=== PATIENT | female | born 1960 | race Caucasian/White ===

== ENCOUNTER 2016-09-10 01:45 | Emergency (ER) | payer OTHER ==
[~2016-09-10] VITALS: Ht 167.6 cm; Wt 88.6 kg
[2016-09-10] MEDS ORDERED: CIPROFLOXACIN 500 MG TAB PO ONE (03:30)
[2016-09-10] MEDS ORDERED: CIPR-249 PO (03:48)
[2016-09-10 03:55] VITALS: BP 124/71
== END 2016-09-10 04:02 | disposition home or self-care (01) ==
LOC: M ED 01:45
DX: N39.0 Urinary tract infection, site not specified (principal); E11.9 Type 2 diabetes mellitus without complications

== ENCOUNTER → 2023-07-02 | Outpatient (CLI) | payer OTHER ==
[~2023-07-02] MED LIST: CIPR-249 PO
== END ==
LOC: M WUC 09:04
PROVIDERS: ATTEND Physician Assistant
DX: R07.9 Chest pain, unspecified (principal)

== ENCOUNTER 2023-11-15 00:47 | Inpatient (IN) | payer OTHER ==
[~2023-11-15] VITALS: Ht 167.6 cm; Wt 67.5 kg
[2023-11-15 03:12] LABS: BASO # 0.1 10^3/uL (0.0-0.2); BASO % 0.3 % (0.0-1.0); EOS # 0.1 10^3/uL (0.0-0.5); EOS % 0.6 % (0.0-3.0); HEMATOCRIT 42.8 % (36.0-47.0); HEMOGLOBIN 14.2 g/dl (12.0-15.5); LYMPH # 1.9 10^3/uL (1.5-5.0); LYMPH % 11.5 % (24.0-44.0); MEAN CORPUSCULAR HGB CONC 33.2 g/dl (32.0-36.5); MEAN CORPUSCULAR VOLUME 93.4 fl (80.0-96.0); MONO # 0.7 10^3/uL (0.0-0.8); MONO % 4.4 % (2.0-8.0); NEUTROPHILS # 13.3 10^3/uL (1.5-8.5); NEUTROPHILS % 82.3 % (36.0-66.0); PLATELET COUNT, AUTOMATED 234 10^3/uL (150-450); RED BLOOD COUNT 4.58 10^6/uL (4.00-5.40); WHITE BLOOD COUNT 16.2 10^3/uL (4.0-10.0)
[2023-11-15 03:26] LABS: AMORPHOUS SEDIMENT SMALL (NEGATIVE); APPEARANCE, URINE HAZY (CLEAR); BACTERIA, URINE AUTO NEGATIVE (NEGATIVE); BILIRUBIN, URINE AUTO NEGATIVE (NEGATIVE); BLOOD, URINE BLOOD NEGATIVE (NEGATIVE); COLOR, URINE YELLOW (YELLOW); GLUCOSE, URINE (UA) AUTO NEGATIVE (NEGATIVE); KETONE, URINE AUTO TRACE mg/dL (NEGATIVE); LEUKOCYTE ESTERASE, URINE AUTO TRACE (NEGATIVE); MUCUS, URINE SMALL (NEGATIVE); NITRITE, URINE AUTO NEGATIVE (NEGATIVE); PROTEIN, URINE AUTO NEGATIVE (NEGATIVE); RBC, URINE AUTO 3 /HPF (0-3); SPECIFIC GRAVITY URINE AUTO 1.018 (1.002-1.035); SQUAMOUS EPITHELIAL CELL UR AU 1 /HPF (0-6); UROBILINOGEN, URINE AUTO 0.2 mg/dL (0.0-2.0); WBC, URINE AUTO 4 /HPF (0-3)
[2023-11-15 03:40] LABS: LIPASE 131 U/L (12-53)
[2023-11-15 03:42] LABS: ALBUMIN 4.5 G/DL (3.2-5.2); ALKALINE PHOSPHATASE 85 U/L (46-116); ALT/SGPT 26 U/L (7.0-40); AST/SGOT 15 U/L (<34); BILIRUBIN,DIRECT 0.1 MG/DL (<0.4); BILIRUBIN,TOTAL 0.4 MG/DL (0.3-1.2); BLOOD UREA NITROGEN 19 MG/DL (9-23); CALCIUM LEVEL 9.9 MG/DL (8.3-10.6); CARBON DIOXIDE LEVEL 28 MMOL/L (20-31); CHLORIDE LEVEL 106 MMOL/L (98-107); CREATININE FOR GFR 0.54 MG/DL (0.55-1.30); GLOMERULAR FILTRATION RATE > 60.0 (>45); GLUCOSE, FASTING 116 MG/DL (74-106); POTASSIUM SERUM 3.5 MMOL/L (3.5-5.1); SODIUM LEVEL 140 MMOL/L (136-145); TOTAL PROTEIN 7.8 G/DL (5.7-8.2)
[2023-11-15] MEDS: NS 500 ML IV ONE (03:50)
[2023-11-15] MEDS: ONDANSETRON 4MG 2ML VIAL IV ONE (04:00)
[2023-11-15] MEDS: MORPHINE 2 MG/ML 1ML VIAL IV PRN (04:00)
[2023-11-15] MEDS ORDERED: ISOVUE-370 76% 100ML VIAL As Ordered ONE (04:04)
[2023-11-15] MEDS: PIPERACILLIN/TAZOBACTAM SOD 4.5 GM in D5W MINI-BAG PLUS 50 ML IV ONE (05:15)
[2023-11-15] MEDS: NS 1,000 ML IV SCH (07:16)
[2023-11-15] MEDS ORDERED: IBUP80TA PO (08:01)
[2023-11-15] MEDS ORDERED: HOME MED LIST COMPLETE! XX SCH (08:05)
[2023-11-15] MEDS: ONDANSETRON 4MG 2ML VIAL IV PRN (09:34)
[2023-11-15 09:42] VITALS: BP 125/95; TEMP 97.3; O2SAT 96
[2023-11-15] MEDS: PIPERACILLIN/TAZOBACTAM SOD 3.375 GM in D5W MINI-BAG PLUS 50 ML IV SCH (11:15)
[2023-11-15] MEDS: NS 0.45% 1,000 ML IV SCH (11:28)
[2023-11-15 12:00] VITALS: BP 122/88; TEMP 97.5; O2SAT 97
[2023-11-15] MEDS: PROMETHAZINE 25MG/ML 1ML VIAL IV ONE (13:16)
[2023-11-15] MEDS ORDERED: PIPERACILLIN/TAZOBACTAM SOD 4.5 GM in D5W MINI-BAG PLUS 50 ML IV SCH (16:00)
[2023-11-15 19:36] VITALS: BP 132/98; TEMP 97.7; O2SAT 96
[2023-11-15] MEDS: ACETAMINOPHEN TAB 650MG DOSE (2X325MG) PO PRN (20:03)
[2023-11-16 04:00] VITALS: BP 134/80; TEMP 98.1; O2SAT 98
[2023-11-16] MEDS: diphenhydrAMINE 50MG/ML VIAL IV ONE (08:10)
[2023-11-16 08:34] LABS: BASO % 0.2 % (0.0-1.0); EOS % 0.3 % (0.0-3.0); HEMATOCRIT 44.8 % (36.0-47.0); HEMOGLOBIN 15.4 g/dl (12.0-15.5); LYMPH % 12.6 % (24.0-44.0); MEAN CORPUSCULAR HEMOGLOBIN 30.7 pg (27.0-33.0); MEAN CORPUSCULAR HGB CONC 34.4 g/dl (32.0-36.5); MEAN CORPUSCULAR VOLUME 89.2 fl (80.0-96.0); MONO # 1.1 10^3/uL (0.0-0.8); MONO % 6.9 % (2.0-8.0); NEUTROPHILS # 12.4 10^3/uL (1.5-8.5); NEUTROPHILS % 79.6 % (36.0-66.0); PLATELET COUNT, AUTOMATED 269 10^3/uL (150-450); RED BLOOD COUNT 5.02 10^6/uL (4.00-5.40); WHITE BLOOD COUNT 15.6 10^3/uL (4.0-10.0)
[2023-11-16 08:56] LABS: ALBUMIN 4.2 G/DL (3.2-5.2); ALKALINE PHOSPHATASE 79 U/L (46-116); ALT/SGPT 21 U/L (7.0-40); AST/SGOT 11 U/L (<34); BILIRUBIN,TOTAL 0.8 MG/DL (0.3-1.2); BLOOD UREA NITROGEN 7 MG/DL (9-23); CALCIUM LEVEL 9.8 MG/DL (8.3-10.6); CARBON DIOXIDE LEVEL 31 MMOL/L (20-31); CHLORIDE LEVEL 101 MMOL/L (98-107); CREATININE FOR GFR 0.56 MG/DL (0.55-1.30); GLOMERULAR FILTRATION RATE > 60.0 (>45); GLUCOSE, FASTING 111 MG/DL (74-106); POTASSIUM SERUM 3.5 MMOL/L (3.5-5.1); SODIUM LEVEL 139 MMOL/L (136-145); TOTAL PROTEIN 7.7 G/DL (5.7-8.2)
[2023-11-16] MEDS: FIORICET TAB PO ONE (10:48)
[2023-11-16] MEDS: KETOROLAC 30 MG/ML 1ML VIAL IV ONE ×2 (10:49→20:02)
[2023-11-16] MEDS: PROMETHAZINE 25MG/ML 1ML VIAL IV ONE (10:49)
[2023-11-16] MEDS: KCL 10MEQ IN D5/0.45NS 1000ML 1,000 ML IV SCH (10:49)
[2023-11-16 12:00] VITALS: BP 126/74; TEMP 97.9; O2SAT 95
[2023-11-16] MEDS: FLUBLOK(EGGFREE) TRIVAL(24-25) VACCINE PF 0.5ML SYRINGE 18YRS & OLDER IM.IMMUN ONE (12:52)
[2023-11-16] MEDS ORDERED: methylPREDNISolone 125MG 2ML VIAL IV ONE (13:10)
[2023-11-16 19:33] VITALS: BP 155/104; TEMP 97.9; O2SAT 96
[2023-11-16 20:43] VITALS: BP 151/99
[2023-11-17] VITALS (16 sets, daily range): BP systolic 118–182; BP diastolic 62–97; TEMP 97.6–100.2; O2SAT 96–99
[2023-11-17] MEDS: CALCIUM CARBONATE 500 MG CHEW U/D PO PRN (01:30)
[2023-11-17] MEDS: FIORICET TAB PO PRN (06:05)
[2023-11-17 06:26] LABS: BASO % 0.2 % (0.0-1.0); EOS % 0.1 % (0.0-3.0); HEMATOCRIT 45.9 % (36.0-47.0); HEMOGLOBIN 15.3 g/dl (12.0-15.5); LYMPH # 1.9 10^3/uL (1.5-5.0); LYMPH % 10.1 % (24.0-44.0); MEAN CORPUSCULAR HEMOGLOBIN 30.2 pg (27.0-33.0); MEAN CORPUSCULAR HGB CONC 33.3 g/dl (32.0-36.5); MEAN CORPUSCULAR VOLUME 90.7 fl (80.0-96.0); MONO # 1.5 10^3/uL (0.0-0.8); MONO % 8.3 % (2.0-8.0); NEUTROPHILS # 14.9 10^3/uL (1.5-8.5); NEUTROPHILS % 80.6 % (36.0-66.0); PLATELET COUNT, AUTOMATED 266 10^3/uL (150-450); RED BLOOD COUNT 5.06 10^6/uL (4.00-5.40); WHITE BLOOD COUNT 18.5 10^3/uL (4.0-10.0)
[2023-11-17 07:06] LABS: BLOOD UREA NITROGEN 10 MG/DL (9-23); CALCIUM LEVEL 9.6 MG/DL (8.3-10.6); CARBON DIOXIDE LEVEL 30 MMOL/L (20-31); CHLORIDE LEVEL 101 MMOL/L (98-107); CREATININE FOR GFR 0.55 MG/DL (0.55-1.30); GLOMERULAR FILTRATION RATE > 60.0 (>45); GLUCOSE, FASTING 127 MG/DL (74-106); POTASSIUM SERUM 3.3 MMOL/L (3.5-5.1); SODIUM LEVEL 139 MMOL/L (136-145)
[2023-11-17] MEDS ORDERED: LORazepam 2 MG/ML 1ML VIAL As Ordered ONE (08:02)
[2023-11-17] MEDS: LORazepam 2 MG/ML 1ML VIAL IV STA (08:03)
[2023-11-17] MEDS ORDERED: levETIRAcetam INJection 1,000 MG in D5W 100 ML IV SCH (09:00)
[2023-11-17] MEDS ORDERED: levETIRAcetam INJection 1,000 MG in D5W 100 ML IV ONE ×2 (09:00)
[2023-11-17] MEDS: LORazepam 2 MG/ML 1ML VIAL IV PRN (09:00)
[2023-11-17] MEDS: LORazepam 2 MG/ML 1ML VIAL IM STA (09:00)
[2023-11-17] MEDS: levETIRAcetam INJection 1,000 MG in D5W 100 ML IV ONE (09:10)
[2023-11-17] MEDS: NS 1,000 ML IV ONE (12:07)
[2023-11-17] MEDS: ACETAMINOPHEN *IV* 1,000 MG in IV 1 EA IV ONE (12:07)
[2023-11-17] MEDS: PHENYTOIN INJection 1,000 MG in NS 100 ML IV ONE (12:22)
[2023-11-17 13:59] LABS: AMPHETAMINES LEVEL URINE NEGATIVE (NEGATIVE)
[2023-11-17 14:02] LABS: BENZODIAZEPINES URINE NEGATIVE (NEGATIVE); COCAINE METABOLITE URINE NEGATIVE (NEGATIVE); METHADONE URINE NEGATIVE (NEGATIVE)
[2023-11-17 14:06] LABS: OPIATES URINE NEGATIVE (NEGATIVE); PHENCYCLIDINE URINE NEGATIVE (NEGATIVE)
[2023-11-17 14:07] LABS: BARBITURATES URINE POSITIVE (NEGATIVE); CANNABINOIDS URINE POSITIVE (NEGATIVE)
[2023-11-17] MEDS: KCL 40MEQ IN D5/NS 1000ML 1,000 ML IV SCH ×2 (14:33→21:12)
[2023-11-17] MEDS: levETIRAcetam INJection 1,000 MG in D5W 100 ML IV SCH (20:38)
[2023-11-17] MEDS: PHENYTOIN 100MG/2ML VIAL IV SCH (23:21)
[2023-11-18 04:03] VITALS: BP 150/85; TEMP 97.9; O2SAT 97
[2023-11-18 06:15] LABS: BASO # 0.1 10^3/uL (0.0-0.2); BASO % 0.4 % (0.0-1.0); EOS # 0.1 10^3/uL (0.0-0.5); EOS % 0.4 % (0.0-3.0); HEMATOCRIT 44.2 % (36.0-47.0); HEMOGLOBIN 14.4 g/dl (12.0-15.5); LYMPH # 2.4 10^3/uL (1.5-5.0); LYMPH % 17.8 % (24.0-44.0); MEAN CORPUSCULAR HEMOGLOBIN 30.2 pg (27.0-33.0); MEAN CORPUSCULAR HGB CONC 32.6 g/dl (32.0-36.5); MEAN CORPUSCULAR VOLUME 92.7 fl (80.0-96.0); MONO # 1.3 10^3/uL (0.0-0.8); MONO % 9.8 % (2.0-8.0); NEUTROPHILS # 9.4 10^3/uL (1.5-8.5); NEUTROPHILS % 71.2 % (36.0-66.0); PLATELET COUNT, AUTOMATED 227 10^3/uL (150-450); RED BLOOD COUNT 4.77 10^6/uL (4.00-5.40); WHITE BLOOD COUNT 13.2 10^3/uL (4.0-10.0)
[2023-11-18 06:22] LABS: BLOOD UREA NITROGEN < 5 MG/DL (9-23); CALCIUM LEVEL 9.1 MG/DL (8.3-10.6); CARBON DIOXIDE LEVEL 29 MMOL/L (20-31); CHLORIDE LEVEL 108 MMOL/L (98-107); CREATININE FOR GFR 0.54 MG/DL (0.55-1.30); GLOMERULAR FILTRATION RATE > 60.0 (>45); GLUCOSE, FASTING 108 MG/DL (74-106); POTASSIUM SERUM 3.6 MMOL/L (3.5-5.1); SODIUM LEVEL 142 MMOL/L (136-145)
[2023-11-18 09:15] VITALS: BP 141/74; TEMP 98.2; O2SAT 96
[2023-11-18 12:30] VITALS: BP 134/76; TEMP 99.1; O2SAT 95
[2023-11-18 16:00] VITALS: BP 140/88; TEMP 97.7; O2SAT 95
[2023-11-18] MEDS: LORazepam 1 MG TAB PO ONE (18:30)
[2023-11-18] MEDS ORDERED: PROHANCE 279.3MG/ML 15ML VIAL As Ordered ONE (19:12)
[2023-11-18 20:00] VITALS: BP 125/76; TEMP 98; O2SAT 96
[2023-11-18] MEDS: ACETAMINOPHEN *IV* 500 MG in IV 1 EA IV ONE (20:57)
[2023-11-18] MEDS: ONDANSETRON 4MG 2ML VIAL IV ONE (20:57)
[2023-11-19] VITALS: BP 126/77; TEMP 97.3; O2SAT 95
[2023-11-19 04:00] VITALS: BP 110/64; TEMP 97.6; O2SAT 95
[2023-11-19 05:31] LABS: BASO # 0.1 10^3/uL (0.0-0.2); BASO % 0.5 % (0.0-1.0); EOS # 0.2 10^3/uL (0.0-0.5); EOS % 1.5 % (0.0-3.0); HEMATOCRIT 41.2 % (36.0-47.0); HEMOGLOBIN 13.8 g/dl (12.0-15.5); LYMPH # 2.8 10^3/uL (1.5-5.0); LYMPH % 24.9 % (24.0-44.0); MEAN CORPUSCULAR HEMOGLOBIN 30.7 pg (27.0-33.0); MEAN CORPUSCULAR HGB CONC 33.5 g/dl (32.0-36.5); MEAN CORPUSCULAR VOLUME 91.8 fl (80.0-96.0); MONO # 1.1 10^3/uL (0.0-0.8); MONO % 9.7 % (2.0-8.0); NEUTROPHILS % 62.8 % (36.0-66.0); PLATELET COUNT, AUTOMATED 200 10^3/uL (150-450); RED BLOOD COUNT 4.49 10^6/uL (4.00-5.40); WHITE BLOOD COUNT 11.1 10^3/uL (4.0-10.0)
[2023-11-19 05:54] LABS: PHENYTOIN (DILANTIN) 17.3 UG/ML (10.0-20.0)
[2023-11-19 05:59] LABS: BLOOD UREA NITROGEN < 5 MG/DL (9-23); CALCIUM LEVEL 9.5 MG/DL (8.3-10.6); CARBON DIOXIDE LEVEL 29 MMOL/L (20-31); CHLORIDE LEVEL 109 MMOL/L (98-107); CREATININE FOR GFR 0.58 MG/DL (0.55-1.30); GLOMERULAR FILTRATION RATE > 60.0 (>45); GLUCOSE, FASTING 100 MG/DL (74-106); POTASSIUM SERUM 3.7 MMOL/L (3.5-5.1); SODIUM LEVEL 143 MMOL/L (136-145)
[2023-11-19 08:00] VITALS: BP 118/75; TEMP 97.6; O2SAT 96
[2023-11-19] MEDS: PHENYTOIN ER 100 MG CAP PO SCH (11:54)
[2023-11-19 16:51] VITALS: BP 114/66; TEMP 98.7; O2SAT 95
[2023-11-19 19:56] VITALS: BP 125/68; TEMP 99; O2SAT 97
[2023-11-19] MEDS: levETIRAcetam 250MG TABLET (KEPPRA) PO SCH (20:32)
[2023-11-19] MEDS: AUGMENTIN 875 MG TAB PO SCH (20:32)
[2023-11-19 23:27] LABS: BASO # 0.1 10^3/uL (0.0-0.2); BASO % 0.5 % (0.0-1.0); EOS # 0.1 10^3/uL (0.0-0.5); HEMOGLOBIN 13.7 g/dl (12.0-15.5); LYMPH # 2.4 10^3/uL (1.5-5.0); LYMPH % 19.1 % (24.0-44.0); MEAN CORPUSCULAR HEMOGLOBIN 30.7 pg (27.0-33.0); MEAN CORPUSCULAR HGB CONC 33.4 g/dl (32.0-36.5); MEAN CORPUSCULAR VOLUME 91.9 fl (80.0-96.0); MONO # 1.1 10^3/uL (0.0-0.8); MONO % 8.9 % (2.0-8.0); NEUTROPHILS # 8.8 10^3/uL (1.5-8.5); NEUTROPHILS % 69.8 % (36.0-66.0); PLATELET COUNT, AUTOMATED 225 10^3/uL (150-450); RED BLOOD COUNT 4.46 10^6/uL (4.00-5.40); WHITE BLOOD COUNT 12.6 10^3/uL (4.0-10.0)
[2023-11-19] MEDS: KETOROLAC 30 MG/ML 1ML VIAL IV PRN (23:34)
[2023-11-19 23:46] LABS: LIPASE 27 U/L (12-53)
[2023-11-19 23:48] LABS: ALBUMIN 3.4 G/DL (3.2-5.2); ALKALINE PHOSPHATASE 72 U/L (46-116); ALT/SGPT 18 U/L (7.0-40); AMYLASE 46 U/L (30-118); AST/SGOT 18 U/L (<34); BILIRUBIN,DIRECT 0.1 MG/DL (<0.4); BILIRUBIN,TOTAL 0.4 MG/DL (0.3-1.2); BLOOD UREA NITROGEN 6 MG/DL (9-23); CALCIUM LEVEL 9.5 MG/DL (8.3-10.6); CARBON DIOXIDE LEVEL 28 MMOL/L (20-31); CHLORIDE LEVEL 109 MMOL/L (98-107); CREATININE FOR GFR 0.47 MG/DL (0.55-1.30); GLOMERULAR FILTRATION RATE > 60.0 (>45); GLUCOSE, FASTING 106 MG/DL (74-106); MAGNESIUM LEVEL 1.8 MG/DL (1.8-2.4); POTASSIUM SERUM 3.3 MMOL/L (3.5-5.1); SODIUM LEVEL 141 MMOL/L (136-145); TOTAL PROTEIN 6.7 G/DL (5.7-8.2)
[2023-11-20] MEDS: POTASSIUM CHLORIDE 10MEQ SR TABLET PO ONE (01:01)
[2023-11-20 04:00] VITALS: BP 128/81; TEMP 98.7; O2SAT 96
[2023-11-20 07:16] LABS: BASO % 0.4 % (0.0-1.0); EOS # 0.2 10^3/uL (0.0-0.5); EOS % 1.5 % (0.0-3.0); HEMATOCRIT 40.6 % (36.0-47.0); HEMOGLOBIN 13.6 g/dl (12.0-15.5); LYMPH # 2.3 10^3/uL (1.5-5.0); LYMPH % 21.3 % (24.0-44.0); MEAN CORPUSCULAR HEMOGLOBIN 30.5 pg (27.0-33.0); MEAN CORPUSCULAR HGB CONC 33.5 g/dl (32.0-36.5); MONO % 9.4 % (2.0-8.0); NEUTROPHILS # 7.1 10^3/uL (1.5-8.5); NEUTROPHILS % 66.5 % (36.0-66.0); PLATELET COUNT, AUTOMATED 224 10^3/uL (150-450); RED BLOOD COUNT 4.46 10^6/uL (4.00-5.40); WHITE BLOOD COUNT 10.7 10^3/uL (4.0-10.0)
[2023-11-20 07:49] LABS: BLOOD UREA NITROGEN 10 MG/DL (9-23); CALCIUM LEVEL 9.5 MG/DL (8.3-10.6); CARBON DIOXIDE LEVEL 28 MMOL/L (20-31); CHLORIDE LEVEL 108 MMOL/L (98-107); CREATININE FOR GFR 0.51 MG/DL (0.55-1.30); GLOMERULAR FILTRATION RATE > 60.0 (>45); GLUCOSE, FASTING 92 MG/DL (74-106); SODIUM LEVEL 141 MMOL/L (136-145)
[2023-11-20 12:00] VITALS: BP 126/68; TEMP 97.8; O2SAT 95
[2023-11-20] MEDS: ACETAMINOPHEN TAB 650MG DOSE (2X325MG) PO PRN (13:29)
[2023-11-20 20:00] VITALS: BP 115/65; TEMP 98; O2SAT 98
[2023-11-21 04:00] VITALS: BP 125/64; TEMP 97.8; O2SAT 97
[2023-11-21 07:08] LABS: BASO # 0.1 10^3/uL (0.0-0.2); BASO % 0.5 % (0.0-1.0); EOS # 0.2 10^3/uL (0.0-0.5); EOS % 1.5 % (0.0-3.0); HEMATOCRIT 40.1 % (36.0-47.0); HEMOGLOBIN 13.4 g/dl (12.0-15.5); LYMPH # 2.1 10^3/uL (1.5-5.0); LYMPH % 19.2 % (24.0-44.0); MEAN CORPUSCULAR HEMOGLOBIN 31.1 pg (27.0-33.0); MEAN CORPUSCULAR HGB CONC 33.4 g/dl (32.0-36.5); MONO # 0.8 10^3/uL (0.0-0.8); MONO % 7.5 % (2.0-8.0); NEUTROPHILS # 7.8 10^3/uL (1.5-8.5); NEUTROPHILS % 70.4 % (36.0-66.0); PLATELET COUNT, AUTOMATED 228 10^3/uL (150-450); RED BLOOD COUNT 4.31 10^6/uL (4.00-5.40); WHITE BLOOD COUNT 11.1 10^3/uL (4.0-10.0)
[2023-11-21 07:39] LABS: BLOOD UREA NITROGEN 12 MG/DL (9-23); CALCIUM LEVEL 9.3 MG/DL (8.3-10.6); CARBON DIOXIDE LEVEL 27 MMOL/L (20-31); CHLORIDE LEVEL 108 MMOL/L (98-107); CREATININE FOR GFR 0.53 MG/DL (0.55-1.30); GLOMERULAR FILTRATION RATE > 60.0 (>45); GLUCOSE, FASTING 111 MG/DL (74-106); POTASSIUM SERUM 3.7 MMOL/L (3.5-5.1); SODIUM LEVEL 139 MMOL/L (136-145)
[2023-11-21] MEDS ORDERED: AMOX875T2 PO (09:40)
[2023-11-21] MEDS ORDERED: DILA100C PO (09:40)
[2023-11-21] MEDS ORDERED: KEPP250T5 PO (09:40)
[2023-11-21] MEDS ORDERED: BACI1CAP PO (09:40)
== END 2023-11-21 12:47 | disposition home or self-care (01) | DRG 245 ==
LOC: M ED 00:47 → M ED INP 07:36 → M MS5PR 09:20 → M ICU 11-17 08:10 → M MS4PR 11-19 16:14
PROVIDERS: ADMIT General Practice; ATTEND General Practice
DX: K51.00 Ulcerative (chronic) pancolitis without complications (principal); E87.20 Acidosis, unspecified; G40.409 Other generalized epilepsy and epileptic syndromes, not intractable, without status epilepticus; F17.200 Nicotine dependence, unspecified, uncomplicated; K57.90 Diverticulosis of intestine, part unspecified, without perforation or abscess without bleeding; Z79.899 Other long term (current) drug therapy; Z88.8 Allergy status to other drugs, medicaments and biological substances; Z88.5 Allergy status to narcotic agent

== ENCOUNTER → 2023-12-10 | Outpatient (REF) | payer OTHER ==
[~2023-12-10] MED LIST changes: +AMOX875T2 PO; +BACI1CAP PO; +DILA100C PO; +IBUP80TA PO; +KEPP250T5 PO
[2023-12-10 19:08] LABS: BASO # 0.1 10^3/uL (0.0-0.2); BASO % 0.9 % (0.0-1.0); EOS # 0.2 10^3/uL (0.0-0.5); EOS % 2.8 % (0.0-3.0); HEMOGLOBIN 13.3 g/dl (12.0-15.5); LYMPH # 2.5 10^3/uL (1.5-5.0); LYMPH % 37.8 % (24.0-44.0); MEAN CORPUSCULAR HEMOGLOBIN 30.5 pg (27.0-33.0); MEAN CORPUSCULAR HGB CONC 32.4 g/dl (32.0-36.5); MONO # 0.5 10^3/uL (0.0-0.8); NEUTROPHILS # 3.4 10^3/uL (1.5-8.5); NEUTROPHILS % 50.4 % (36.0-66.0); PLATELET COUNT, AUTOMATED 262 10^3/uL (150-450); RED BLOOD COUNT 4.36 10^6/uL (4.00-5.40); WHITE BLOOD COUNT 6.7 10^3/uL (4.0-10.0)
[2023-12-10 19:35] LABS: ALKALINE PHOSPHATASE 94 U/L (46-116); ALT/SGPT 19 U/L (7.0-40); AST/SGOT 11 U/L (<34); BILIRUBIN,TOTAL 0.2 MG/DL (0.3-1.2); BLOOD UREA NITROGEN 8 MG/DL (9-23); CALCIUM LEVEL 10.3 MG/DL (8.3-10.6); CARBON DIOXIDE LEVEL 28 MMOL/L (20-31); CHLORIDE LEVEL 110 MMOL/L (98-107); CREATININE FOR GFR 0.53 MG/DL (0.55-1.30); GLOMERULAR FILTRATION RATE > 60.0 (>45); GLUCOSE, FASTING 79 MG/DL (74-106); POTASSIUM SERUM 4.2 MMOL/L (3.5-5.1); SODIUM LEVEL 142 MMOL/L (136-145); TOTAL PROTEIN 7.3 G/DL (5.7-8.2)
== END ==
LOC: M LAB REF 16:52
PROVIDERS: ATTEND Physician Assistant
DX: K52.9 Noninfective gastroenteritis and colitis, unspecified (principal)

== ENCOUNTER → 2024-04-12 | Outpatient (REF) | payer OTHER ==
[2024-04-12 14:18] LABS: CHOLESTEROL RISK RATIO 4.09 (<5); HDL CHOLESTEROL 51.5 MG/DL (>40); LDL CHOLESTEROL 132.1 MG/DL (<100); NON-HDL-C 159.5 MG/DL
[2024-04-12 14:20] LABS: THYROID STIMULATING HORMONE 0.672 uIU/ML (0.55-4.78); TOTAL 25(OH) VITAMIN D 26.2 NG/ML (20.0-100.0)
== END ==
LOC: M LAB REF 11:57
PROVIDERS: ATTEND Student in an Organized Health Care Education/Training Program
DX: Z00.01 Encounter for general adult medical examination with abnormal findings (principal)

== ENCOUNTER 2024-06-13 09:40 | Emergency (ER) | payer OTHER ==
[~2024-06-13] VITALS: Ht 167.6 cm; Wt 65.2 kg
[2024-06-13 09:46] VITALS: TEMP 97.4
[2024-06-13] MEDS ORDERED: LEVE10003 (09:58)
[2024-06-13 10:23] LABS: BASO # 0.1 10^3/uL (0.0-0.2); BASO % 0.4 % (0.0-1.0); EOS # 0.2 10^3/uL (0.0-0.5); EOS % 1.7 % (0.0-3.0); HEMATOCRIT 42.6 % (36.0-47.0); LYMPH # 2.1 10^3/uL (1.5-5.0); MEAN CORPUSCULAR HEMOGLOBIN 30.3 pg (27.0-33.0); MEAN CORPUSCULAR HGB CONC 32.9 g/dl (32.0-36.5); MEAN CORPUSCULAR VOLUME 92.2 fl (80.0-96.0); MONO # 0.8 10^3/uL (0.0-0.8); MONO % 6.4 % (2.0-8.0); NEUTROPHILS # 8.5 10^3/uL (1.5-8.5); NEUTROPHILS % 73.1 % (36.0-66.0); PLATELET COUNT, AUTOMATED 231 10^3/uL (150-450); RED BLOOD COUNT 4.62 10^6/uL (4.00-5.40); WHITE BLOOD COUNT 11.7 10^3/uL (4.0-10.0)
[2024-06-13] MEDS: ONDANSETRON 4MG 2ML VIAL IV ONE (10:25)
[2024-06-13 10:47] LABS: LIPASE 48 U/L (12-53)
[2024-06-13 10:49] LABS: ALKALINE PHOSPHATASE 77 U/L (35-104); ALT/SGPT 23 U/L (7.0-40); AST/SGOT 18 U/L (<34); BILIRUBIN,DIRECT 0.1 MG/DL (<0.4); BILIRUBIN,TOTAL 0.4 MG/DL (0.3-1.2); BLOOD UREA NITROGEN 12 MG/DL (9-23); CALCIUM LEVEL 9.7 MG/DL (8.3-10.6); CARBON DIOXIDE LEVEL 28 MMOL/L (20-31); CHLORIDE LEVEL 107 MMOL/L (98-107); CREATININE FOR GFR 0.52 MG/DL (0.55-1.30); GLOMERULAR FILTRATION RATE > 90.0 (>45); GLUCOSE, FASTING 116 MG/DL (74-106); POTASSIUM SERUM 4.1 MMOL/L (3.5-5.1); SODIUM LEVEL 144 MMOL/L (136-145); TOTAL PROTEIN 7.4 G/DL (5.7-8.2)
[2024-06-13] MEDS ORDERED: ISOVUE-370 76% 100ML VIAL As Ordered ONE (11:58)
[2024-06-13] MEDS: KETOROLAC 30 MG/ML 1ML VIAL IV ONE (12:02)
[2024-06-13] MEDS: METOCLOPRAMIDE 10MG TAB PO ONE (13:25)
[2024-06-13] MEDS ORDERED: REGL10TA6 PO (14:22)
[2024-06-13] MEDS: PROMETHAZINE 25MG/ML 1ML VIAL IV ONE (14:30)
[2024-06-13 15:10] VITALS: O2SAT 95
[2024-06-13 15:15] VITALS: BP 152/83
[2024-06-13] MEDS ORDERED: PROM25TA12 PO (15:22)
== END 2024-06-13 15:34 | disposition home or self-care (01) ==
LOC: M ED 09:40
DX: K31.84 Gastroparesis (principal); Z88.5 Allergy status to narcotic agent; Z88.8 Allergy status to other drugs, medicaments and biological substances; Z79.899 Other long term (current) drug therapy; R56.9 Unspecified convulsions; K51.90 Ulcerative colitis, unspecified, without complications
CPT/HCPCS: 74177; 80048; 80076; 83690; 85025; 96374; 96375; 99284; J1885; J2405; J2550; Q9967

== ENCOUNTER → 2024-07-02 | Outpatient (REF) | payer OTHER ==
[~2024-07-02] MED LIST changes: +LEVE10003; +PROM25TA12 PO; +REGL10TA6 PO
[2024-07-06 14:12] LABS: HPV APTIMA Not Detected (Not Detected)
== END ==
LOC: M LAB REF 17:54
PROVIDERS: ATTEND Student in an Organized Health Care Education/Training Program
DX: Z12.4 Encounter for screening for malignant neoplasm of cervix (principal)

== ENCOUNTER → 2024-10-19 | Outpatient (REF) | payer OTHER ==
[2024-10-19 13:41] LABS: CHOLESTEROL LEVEL 251.0 MG/DL (<200); CHOLESTEROL RISK RATIO 3.84 (<5); LDL CHOLESTEROL 165.7 MG/DL (<100); NON-HDL-C 185.7 MG/DL; TRIGLYCERIDES LEVEL 100.0 MG/DL (<150)
== END ==
LOC: M LABWUC 12:12
PROVIDERS: ATTEND Student in an Organized Health Care Education/Training Program
DX: E78.5 Hyperlipidemia, unspecified (principal)

== ENCOUNTER → 2024-12-22 | Outpatient (CLI) | payer OTHER | LOC: M CARPUL 09:55 | PROVIDERS: ATTEND Student in an Organized Health Care Education/Training Program | DX: R06.09 Other forms of dyspnea (principal) ==

== ENCOUNTER → 2025-01-31 | Outpatient (REF) | payer OTHER ==
[2025-01-31 15:32] LABS: ALT/SGPT 20 U/L (7.0-40); AST/SGOT 21 U/L (<34); CALCIUM LEVEL 9.7 MG/DL (8.3-10.6); CARBON DIOXIDE LEVEL 28 MMOL/L (20-31); CHLORIDE LEVEL 106 MMOL/L (98-107); CHOLESTEROL LEVEL 176 MG/DL (<200); CHOLESTEROL RISK RATIO 2.96 (<5); CREATININE FOR GFR 0.58 MG/DL (0.55-1.30); GLOMERULAR FILTRATION RATE > 90.0 (>45); LDL CHOLESTEROL 95.9 MG/DL (<100); NON-HDL-C 116.7 MG/DL; POTASSIUM SERUM 4.4 MMOL/L (3.5-5.1); SODIUM LEVEL 142 MMOL/L (136-145); TRIGLYCERIDES LEVEL 104 MG/DL (<150)
== END ==
LOC: M LAB REF 14:51
PROVIDERS: ATTEND Student in an Organized Health Care Education/Training Program
DX: E78.5 Hyperlipidemia, unspecified (principal)

== ENCOUNTER → 2025-02-15 | Outpatient (CLI) | payer OTHER | LOC: M WUC 08:55 | PROVIDERS: ATTEND Student in an Organized Health Care Education/Training Program | DX: R06.09 Other forms of dyspnea (principal) ==